=== PATIENT | female | born 1995 | race American Indian/Alaskan Native ===

== ENCOUNTER 2021-01-25 01:34 | Emergency (ER) | payer OTHER ==
[2021-01-25 03:01] VITALS: BP 121/67
[2021-01-25] MEDS ORDERED: ACETAMINOPHEN 500 MG TAB PO ONE (05:38)
--- NOTE | 2021-01-25 06:06 | Emergency Department Report ---
ED General Adult HPI - General Chief complaint: Rectal Pain Stated complaint: HEMORRHOIDS/RECTAL PAIN Source: patient, EMS Mode of arrival: Stretcher Limitations: No Limitations - History of Present Illness Initial comments: Patient is a A0 25-year-old -[place] female who is approximately 6 months gestation presents to the ED with acute onset persistent rectal pain due to external hemorrhoid for the last 1 week. Patient states that the pain is worsened especially in the last 2 days such that she is unable to sit down or walk because of worsening pain. Patient states that she has been sitting in a warm bath with no relief. Patient denies rectal bleeding, diarrhea, nausea and vomiting, fever, chills, cough, chest pain or shortness of breath, vaginal bleeding, dysuria, urinary frequency and urgency and abdominal pain. MD Complaint: Rectal pain due to hemorrhoids -: Sudden, week(s) (1) Location: buttocks (Rectum) Radiation: non-radiation Severity scale (0 -10): 8 Quality: aching, sharp Consistency: constant Improves with: none Worsens with: movement Associated Symptoms: denies other symptoms. denies: confusion, chest pain, cough, diaphoresis, fever/chills, headaches, loss of appetite, malaise, nausea/vomiting, rash, seizure, shortness of breath, syncope, weakness, other Treatments Prior to Arrival: none - Related Data Previous Rx's Medication Instructions Recorded Last Taken Type Acetaminophen [Tylenol] 500 mg PO Q6HR PRN #30 tablet 01/25/21 Unknown Rx Dibucaine 1% [Nupercainal] 1 applicatio WI TID #1 tube 01/25/21 Unknown Rx Docusate Sodium [Dok] 100 mg PO DAILY #60 tablet 01/25/21 Unknown Rx Hydrocortisone [Anusol-Hc 2.5% TOP 1 applic RC Q12H PRN #1 cream..g. 01/25/21 Unknown Rx CREAM] Allergies Allergy/AdvReac Type Severity Reaction Status Date / Time No Known Allergies Allergy Unverified 01/25/21 03:00 ED Review of Systems ROS: Stated complaint: HEMORRHOIDS/RECTAL PAIN Other details as noted in HPI Constitutional: denies: chills, fever Eyes: denies: eye pain, eye discharge, vision change ENT: denies: ear pain, throat pain Respiratory: denies: cough, shortness of breath, wheezing Cardiovascular: denies: chest pain, palpitations Endocrine: no symptoms reported Gastrointestinal: other (Rectal hemorrhoid pain). denies: abdominal pain, nausea, diarrhea Genitourinary: denies: urgency, dysuria, discharge Musculoskeletal: denies: back pain, joint swelling, arthralgia Skin: denies: rash, lesions Neurological: denies: headache, weakness, paresthesias Psychiatric: denies: anxiety, depression Hematological/Lymphatic: denies: easy bleeding, easy bruising ED Past Medical Hx - Past Medical History Previous Medical History?: No - Surgical History Past Surgical History?: No - Social History Smoking Status: Never Smoker Substance Use Type: None - Medications Home Medications: Home Medications Medication Instructions Recorded Confirmed Last Taken Type Acetaminophen [Tylenol] 500 mg PO Q6HR PRN #30 tablet 01/25/21 Unknown Rx Dibucaine 1% [Nupercainal] 1 applicatio WI TID #1 tube 01/25/21 Unknown Rx Docusate Sodium [Dok] 100 mg PO DAILY #60 tablet 01/25/21 Unknown Rx Hydrocortisone [Anusol-Hc 2.5% TOP 1 applic RC Q12H PRN #1 cream..g. 01/25/21 Unknown Rx CREAM] ED Physical Exam - General Limitations: No Limitations General appearance: alert, in no apparent distress - Head Head exam: Present: atraumatic, normocephalic, normal inspection - Eye Eye exam: Present: normal appearance, PERRL, EOMI Pupils: Present: normal accommodation - ENT ENT exam: Present: normal exam, normal orophraynx, mucous membranes moist, TM's normal bilaterally, normal external ear exam - Neck Neck exam: Present: normal inspection, full ROM - Respiratory Respiratory exam: Present: normal lung sounds bilaterally. Absent: respiratory distress, wheezes, rales, stridor, chest wall tenderness, accessory muscle use, decreased breath sounds - Cardiovascular Cardiovascular Exam: Present: normal rhythm, tachycardia. Absent: systolic murmur, diastolic murmur, rubs, gallop - GI/Abdominal GI/Abdominal exam: Present: soft, normal bowel sounds, other (Gravid abdomen). Absent: tenderness, guarding, hyperactive bowel sounds, organomegaly, mass, bruit - Rectal Rectal exam: Present: deferred, hemorrhoids (External tender hemorrhoids), tenderness, other (Female RN cpc present) - Extremities Exam Extremities exam: Present: normal inspection, full ROM, normal capillary refill - Back Exam Back exam: Present: normal inspection, full ROM. Absent: tenderness, CVA tenderness (R), CVA tenderness (L), muscle spasm, paraspinal tenderness, vertebral tenderness - Neurological Exam Neurological exam: Present: alert, oriented X3, CN II-XII intact, normal gait, reflexes normal - Psychiatric Psychiatric exam: Present: normal affect, normal mood - Skin Skin exam: Present: warm, dry, intact, normal color. Absent: rash ED Course Vital Signs 01/25/21 01/25/21 02:57 05:50 Temperature 98.3 F Pulse Rate 102 H Respiratory 16 18 Rate Blood Pressure 121/67 O2 Sat by Pulse 100 Oximetry ED Medical Decision Making - Medical Decision Making This is a A0 25-year-old -[place] female who is approximately 6 months gestation presents to the ED with acute onset persistent rectal pain due to external hemorrhoid for the last 1 week. Patient states that the pain is worsened especially in the last 2 days such that she is unable to sit down or walk because of worsening pain. Patient states that she has been sitting in a warm bath with no relief. In the ED, patient is alert and oriented x3 and is not in any distress. Patient was treated for pain in the ED with Tylenol. Patient was thereafter discharged home on pain medications and ointments for hemorrhoids. Patient was advised to follow-up with her ACADEMIC DIRECTOR physician or primary care physician in 7 to 10 days for reevaluation or return to the ED i mmediately if symptoms get worse. - Differential Diagnosis External hemorrhoids; chronic constipation; anal tears Critical care attestation.: If time is entered above; I have spent that time in minutes in the direct care of this critically ill patient, excluding procedure time. ED Disposition Clinical Impression: External hemorrhoids, Anal or rectal pain Disposition: DC-01 TO HOME OR SELFCARE Is pt being admited?: No Does the pt Need Aspirin: No Condition: Stable Instructions: Nonsurgical Procedures for Hemorrhoids, Care After, Hemorrhoids, [id number] Additional Instructions: Take pain medications and apply the pain medication to the area as advised, drink plenty of fluids, increase your fiber intake to ease your bowel habits. Lay in a warm sitz bath to improve your symptoms. Follow-up with your ACADEMIC DIRECTOR physician in 7 to 10 days for reevaluation. Return to the ED immediately if symptoms get worse. Prescriptions: Acetaminophen [Tylenol] 500 mg PO Q6HR PRN #30 tablet PRN Reason: Pain , Severe (7-10) Hydrocortisone [Anusol-Hc 2.5% TOP CREAM] 1 applic RC Q12H PRN #1 cream..g. PRN Reason: Hemorrhoids Docusate Sodium [Dok] 100 mg PO DAILY #60 tablet Dibucaine 1% [Nupercainal] 1 applicatio WI TID #1 tube Referrals: [facility] [Provider Group] - 3-5 Days ANETTE CHAVEZ MD [Staff Physician] - 3-5 Days Time of Disposition: 06:04 Print Language: [id number]
== END 2021-01-25 06:20 | disposition home or self-care (01) ==
LOC: ED 01:34
DX: K64.4 Residual hemorrhoidal skin tags (principal)
CPT/HCPCS: 99283